=== PATIENT | female | born 1995 | race Caucasian/White ===

== ENCOUNTER 2020-08-29 21:11 | Inpatient (IN) ==
[2020-08-29 21:56] LABS: Bacteria,Urine Few per hpf (None-Few); Bilirubin,Urine Negative (Negative); Blood,Urine Small (Negative); Clarity,Urine Clear (Clear); Color,Urine Light-Yellow (Yellow); Glucose,Urine (UA) Normal (Normal); Ketones,Urine 40 mg/dL (Negative); Leukocyte Esterase,Urine Moderate (Negative); Mucus,Urine Few per lpf (None-Few); Nitrite,Urine Negative (Negative); Protein,Urine Trace mg/dL (Neg-Trace); Specific Gravity,Urine 1.023 (1.010-1.025); Squamous Epithelial Cell,Urine Moderate per hpf (None-Few); Urobilinogen,Urine Normal (Normal)
[2020-08-29 21:59] LABS: Basophils % 0.2 %; Eosinophils % 0.2 %; Hematocrit 42.7 % (35.3-44.9); Hemoglobin 14.5 g/dL (11.5-15.4); Immature Granulocytes % 0.2 % (0-4); Lymphocytes # 2.7 K/mcL (0.6-4.6); Lymphocytes % 21.9 %; Mean Corpuscular Hemoglobin 30.8 pg (28.0-33.3); Mean Corpuscular Volume 90.7 fL (83.0-100.0); Mean Platelet Volume 10.1 fL (9.4-12.4); Monocytes # 0.6 K/mcL (0.0-1.3); Neutrophils # 8.9 K/mcL (1.6-8.9); Platelet Count 364 K/mcL (140-400); Red Blood Count 4.71 M/mcL (3.82-4.97); Red Cell Distribution Width 11.4 % (11.5-14.5); Segmented Neutrophils % 72.5 %; White Blood Count 12.3 K/mcL (4.3-11.1)
[2020-08-29 22:04] LABS: Amphetamine Screen,Urine Negative ng/mL (Cutoff=1000); Barbiturate Screen,Urine Negative ng/mL (Cutoff=200); Benzodiazepines Screen,Urine Negative ng/mL (Cutoff=200); Cannabinoid Screen,Urine Positive ng/mL (Cutoff = 50); Cocaine Screen,Urine Positive ng/mL (Cutoff= 300); Opiate Screen,Urine Negative ng/mL (Cutoff=300); Phencyclidine Screen,Urine Negative ng/mL (Cutoff=25)
[2020-08-29 22:15] LABS: Acetaminophen < 10 mcg/mL (10-20); BUN/Creatinine Ratio 16 (6-26); Blood Urea Nitrogen 12 mg/dL (6-20); Calcium 10.1 mg/dL (8.6-10.3); Carbon Dioxide 22 mEq/L (23-29); Chloride 105 mEq/L (98-107); Ethanol < 10 mg/dL (Less than 10); Glucose 100 mg/dL (70-105); Osmolality,Calculated 284 (280-300); Potassium 3.4 mEq/L (3.5-5.1); Salicylate < 2.5 mg/dL (15.0-30.0); Sodium 137 mEq/L (136-145); eGFR For African Americans > 60 (> 60); eGFR For Non-African Americans > 60 (> 60)
[2020-08-29 22:28] LABS: Thyroid Stimulating Hormone 2.818 mcIU/mL (0.340-5.600)
[2020-08-29 23:57] LABS: Estimated Average Glucose 97 mg/dl
[2020-08-30] MEDS ORDERED: traZODone 50 MG TABLET PO PRN (00:14)
[2020-08-30] MEDS ORDERED: *HR* LORazepam 2 MG/ML VIAL IM PRN (00:14)
[2020-08-30] MEDS ORDERED: haloperidoL 5 MG TABLET PO PRN (00:14)
[2020-08-30] MEDS ORDERED: hydrOXYzine pamoate 25 MG CAPSULE PO PRN (00:14)
[2020-08-30] MEDS ORDERED: Mag Hydrox/Al Hydrox/Simeth 30 ML UDC PO PRN (00:14)
[2020-08-30] MEDS ORDERED: MOM Conc 10 ML UD.LIQ PO PRN (00:14)
[2020-08-30] MEDS ORDERED: Acetaminophen 325 MG TABLET PO PRN (00:14)
[2020-08-30] MEDS ORDERED: *HR* LORazepam 1 MG TABLET PO PRN (00:14)
[2020-08-30] MEDS ORDERED: Haloperidol Lactate 5 MG/ML VIAL IM PRN (00:14)
[2020-08-31 09:40] VITALS: BP 108/75
== END 2020-08-31 10:40 | disposition home or self-care (01) | DRG 885 ==
LOC: EMEROOARM 21:11 → 1ANU 23:55
PROVIDERS: ADMIT Psychiatry & Neurology Psychiatry; ATTEND Psychiatry & Neurology Psychiatry